=== PATIENT | male | born 1980 | race Caucasian/White ===

== ENCOUNTER 2016-12-07 08:59 | Emergency (ER) | payer OTHER ==
[~2016-12-07] VITALS: Ht 180.3 cm; Wt 140.8 kg
[~2016-12-07 08:59] MED LIST: FOLIC ACID1 MG PO; LAMICTAL25 MG PO; LISINOPRIL20 MG PO; NOHOMEMEDS; THERAFLU EXP245.5 ML PO; THERAGRAN1 TABLET PO; Thiamine,Vitamin B1 PO; VENTOLIN HFA18 GM IH
[2016-12-07 10:18] LABS: BASOPHIL COUNT 0.1 K/uL (0-0.1); EOSINOPHIL (%) 0.9 % (0-5); HEMATOCRIT 43.2 % (38.0-50.0); IMMATURE GRANULOCYTE (%) 0.2 % (0.0-0.7); IMMATURE GRANULOCYTE COUNT 0.1 K/uL; LYMPHOCYTE COUNT 1.2 K/uL (1.0-2.8); MCH 32.4 PG (29.0-34.0); MCHC 35.2 G/DL (30.0-36.0); MCV 92.1 FL (86-99); MONOCYTE (%) 12.1 % (3-12); MONOCYTE COUNT 0.5 K/uL (0-0.8); NEUTROPHIL (%) 56.2 % (45-76); NEUTROPHIL COUNT 2.4 K/uL (1.8-6.4); PLATELET COUNT 167 K/uL (156-360); RBC DIS.WIDTH-CV 12.8 % (11.8-14.6); RBC DIS.WIDTH-SD 42.2 % (39-53); RED BLOOD COUNT 4.69 M/uL (4.00-5.50); WHITE BLOOD COUNT 4.2 K/uL (4.1-10.2)
[2016-12-07 10:32] LABS: D-DIMER ELISA < 0.15 mg/L FEU (< 0.57)
[2016-12-07 10:35] LABS: CHLORIDE 109 mEq/L (99-109); POTASSIUM 3.9 mEq/L (3.7-5.4); SODIUM 141 mEq/L (136-147)
[2016-12-07 10:37] LABS: GLUCOSE 118 mg/dL (70-99)
[2016-12-07 10:38] LABS: ANION GAP 10 MEQ/L (2-14)
[2016-12-07 10:39] LABS: TOTAL BILIRUBIN 1.3 mg/dL (0.0-1.0)
[2016-12-07 10:40] LABS: SERUM ETHYL ALCOHOL < 10 mg/dL
[2016-12-07 10:41] LABS: ALKALINE PHOSPHATASE 56 IU/L (3-129); GFR ESTIMATE (CALCULATED) > 59 mL/min/
[2016-12-07 10:42] LABS: UREA NITROGEN (BUN) 14 mg/dL (9-23)
[2016-12-07 10:50] LABS: TROP-I INTERPRETATION NEGATIVE; TROPONIN-I < 0.01 ng/mL (0.0-0.30)
[2016-12-07] MEDS ORDERED: ATIVAN1 MG PO (13:19)
[2016-12-07 14:10] VITALS: BP 145/100
== END 2016-12-07 14:10 | disposition home or self-care (01) ==
LOC: EME 08:59
PROVIDERS: Emergency Medicine
DX: F41.8 Other specified anxiety disorders (principal)
CPT/HCPCS: 71010; 80053; 83880; 84484; 85025; 85379; 90839; 93005; 99281; 99284; G0480

== ENCOUNTER → 2016-12-15 | Outpatient (CLI) | payer OTHER ==
[~2016-12-15] MED LIST changes: +ATIVAN1 MG PO
== END | disposition home or self-care (01) ==
LOC: RES 08:41
DX: J45.909 Unspecified asthma, uncomplicated (principal)
CPT/HCPCS: 94060; 94726; 94729